=== PATIENT | male | born 1995 | race African-American/Black ===

== ENCOUNTER 2021-08-12 19:50 | Emergency (ER) | payer OTHER ==
[~2021-08-12] VITALS: Ht 190.5 cm; Wt 69.1 kg
--- NOTE | 2021-08-12 21:25 | REPVR ---
PROCEDURE INFORMATION: Exam: XR Chest Exam date and time: 08/12/2021 9:07 PM Age: 26 years old Clinical indication: Other: Patient states he has been working out and has pain in his chest wall; Additional info: Chest wall pain TECHNIQUE: Imaging protocol: XR of the chest. Views: 2 views. COMPARISON: No relevant prior studies available. FINDINGS: Lungs: Unremarkable. No consolidation. Pleural spaces: Unremarkable. No pleural effusion. No pneumothorax. Heart/Mediastinum: Unremarkable. No cardiomegaly. Bones/joints: Unremarkable. IMPRESSION: No acute findings. Electronically signed by: Cristiano Bhandari On 08/12/2021 21:25:13 PM
[2021-08-12] MEDS ORDERED: KETOROLAC 60MG 2ML VIAL IM ONE (23:15)
[2021-08-12 23:50] VITALS: BP 128/80
== END 2021-08-12 23:52 | disposition home or self-care (01) ==
LOC: EDSEX 19:50 → M ED 19:50
DX: R07.89 Other chest pain (principal); R06.2 Wheezing
CPT/HCPCS: 71046; 96372; 99283; J1885

== ENCOUNTER → 2023-01-03 | Outpatient (CLI) | payer OTHER | LOC: M PLAIMG 07:05 | PROVIDERS: ATTEND Physician Assistant | DX: M79.645 Pain in left finger(s) (principal); R93.6 Abnormal findings on diagnostic imaging of limbs ==